=== PATIENT | male | born 1990 | race American Indian/Alaskan Native ===

== ENCOUNTER 2016-11-23 11:03 | Emergency (ER) | payer MEDICAID, OTHER ==
--- NOTE | 2016-11-23 12:22 | CT ---
Head CT Technique: Multiple axial sections were obtained through the brain. Intravenous contrast was not utilized. Comparison: No previous intracranial imaging. Findings: Ventricles along with basal cisterns and sulci over the convexities are within normal limits for the patient's age. No abnormal parenchymal densities are seen. No evidence of intracranial hemorrhage. No midline shift or mass effect is seen. Bone window settings were reviewed which shows the visualized mastoid sinuses to appear clear. Middle ear cavities are clear. Visualized paranasal sinuses are clear. No acute calvarial abnormality is seen. Impression: 1. No abnormality is identified on noncontrast head CT study. Diagnostic code #1
[2016-11-23] MEDS ORDERED: Acetaminophen 325 MG Tab PO ONE (12:34)
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
[2016-11-23 14:11] VITALS: BP 155/99
== END 2016-11-23 13:45 | disposition home or self-care (01) ==
LOC: JD.ED 11:03
DX: M54.12 Radiculopathy, cervical region (principal); F17.210 Nicotine dependence, cigarettes, uncomplicated
CPT/HCPCS: 36415; 70450; 80053; 82962; 85025; 99284; A9270; 99283